=== PATIENT | male | born 1995 | race Two or more races ===

== ENCOUNTER 2017-07-17 00:30 | Inpatient (IN) | payer OTHER, SELFPAY ==
[2017-07-17] VITALS (16 sets, daily range): BP systolic 66–124; BP diastolic 27–70
[~2017-07-17] VITALS: Ht 170.2 cm; Wt 63.3 kg
[2017-07-17] MEDS ORDERED: ONDANSETRON ODT 4 MG ONE (00:55)
[2017-07-17] MEDS ORDERED: ONDANSETRON ODT 4 MG PO ONE (01:00)
[2017-07-17] MEDS ORDERED: SODIUM CHLORIDE 0.9% 1,000ML IVBOLUS ONE ×2 (01:00→06:30)
[2017-07-17] MEDS ORDERED: SODIUM CHLORIDE FLUSH 10ML SYR IVF ONE (01:00)
[2017-07-17 01:07] LABS: INTERNATIONAL NORMALIZED RATIO 1.64 (0.93-1.1); PROTHROMBIN TIME 16.9 Seconds (9.6-11.5)
[2017-07-17 01:09] LABS: ALANINE AMINOTRANSFERASE 18 U/L (12-78); ALBUMIN 2.3 g/dL (3.4-5.0); ANION GAP 12 mmol/L (5-15); CALCIUM 6.8 mg/dL (8.5-10.1); CHLORIDE 107 mmol/L (98-107); CREATININE 1.16 mg/dL (0.7-1.3)
[2017-07-17] MEDS ORDERED: PROCHLORPERAZINE 5 MG/ML, 2ML ONE (01:10)
[2017-07-17 01:11] LABS: ALKALINE PHOSPHATASE 51 U/L (45-117); BILIRUBIN,TOTAL 0.3 mg/dL (0.2-1.0); TOTAL PROTEIN 4.2 g/dL (6.4-8.2)
[2017-07-17 01:12] LABS: MEAN CORPUSCULAR HEMOGLOBIN 24.7 pg (27.5-34.5); MEAN CORPUSCULAR HGB CONC 31.5 g/dL (33.2-36.2); MEAN CORPUSCULAR VOLUME 78.5 fL (81-97); MEAN PLATELET VOLUME 7.9 fL (7.4-10.4); PLATELET COUNT 113 x10^3/uL (130-400); RED BLOOD COUNT 1.84 x10^6/uL (4.38-5.82); RED CELL DISTRIBUTION WIDTH 18.1 % (9.4-14.8)
[2017-07-17 01:21] LABS: ANISOCYTOSIS 1+; BASOPHILS # (AUTO) 0.02 x10^3/uL (0-0.3); BASOPHILS % (AUTO) 0 % (0-1); EOSINOPHILS % (AUTO) 0 % (1-7); LYMPHOCYTES # (AUTO) 2.16 x10^3/uL (1-6.1); LYMPHOCYTES % (AUTO) 17 % (22-44); MD MORPH REVIEW ONLY; MONOCYTES # (AUTO) 0.89 x10^3/uL (0-1.4); MONOCYTES % (AUTO) 7 % (2-9); NEUTROPHILS # (AUTO) 9.42 x10^3/uL (1.8-8.0); NEUTROPHILS % (AUTO) 75 % (42-75); OVALOCYTES 1+; POLYCHROMASIA 1+; TARGET CELLS 1+
[2017-07-17 01:22] LABS: SCHISTOCYTES 1+
[2017-07-17 01:28] LABS: SPHEROCYTES 1+
[2017-07-17 01:29] LABS: ACETAMINOPHEN 5 mcg/mL (10-30)
[2017-07-17 01:30] LABS: <PLATELET ESTIMATE> ADEQUATE; <PLT MORPHOLOGY> NORMAL PLT MORPH; HYPOCHROMIA 1+; MICROCYTOSIS 1+
[2017-07-17 01:32] LABS: SALICYLATE LEVEL < 1.7 mg/dL (2.8-20.0)
[2017-07-17] MEDS ORDERED: PROCHLORPERAZINE 5 MG/ML, 2ML IVPush ONE (02:30)
[2017-07-17] MEDS ORDERED: DOCUSATE 100 MG CAPSULE PO PRN (04:30)
[2017-07-17] MEDS ORDERED: ACETAMINOPHEN 325 MG TABLET PO PRN (04:30)
[2017-07-17] MEDS ORDERED: D5%-0.9% NACL+KCL 20MEQ 1,000 ML IV SCH (04:30)
[2017-07-17] MEDS ORDERED: OXYcodone IR 5MG TABLET PO PRN (04:30)
[2017-07-17] MEDS ORDERED: BISACODYL 10 MG SUPP PR PRN ×2 (04:30→17:00)
[2017-07-17] MEDS ORDERED: ONDANSETRON 2MG/ML, 2ML IVPush PRN (04:30)
[2017-07-17] MEDS ORDERED: hydrALAzine 20 MG/ML, 1ML IVPush PRN (04:30)
[2017-07-17] MEDS ORDERED: POLYETHYLENE GLYCOL 17 GM PACKET PO PRN (04:30)
[2017-07-17] MEDS ORDERED: PANTOPRAZOLE 40 MG IV IVPush SCH ×2 (04:30→21:00)
[2017-07-17] MEDS ORDERED: PANTOPRAZOLE 40 MG IV ONE (04:40)
[2017-07-17 06:12] LABS: FREE T4 (FREE THYROXINE) 0.83 ng/dL (0.76-1.46); THYROID STIMULATING HORMONE 0.799 mIU/L (0.358-3.740)
[2017-07-17] MEDS: NOREPINEPHRINE 4 MG in SODIUM CHLORIDE 0.9% 246 ML IV PRN ×2 (07:10→10:17)
[2017-07-17 08:37] LABS: ANION GAP 7 mmol/L (5-15); CHLORIDE 115 mmol/L (98-107); CREATININE 0.65 mg/dL (0.7-1.3)
[2017-07-17 08:40] LABS: CALCIUM 5.8 mg/dL (8.5-10.1)
[2017-07-17] MEDS ORDERED: OCTREOTIDE 50 MCG/ML, 1ML (0.05MG/ML) IVPush ONE (09:00)
[2017-07-17] MEDS ORDERED: OCTREOTIDE 500 MCG in SODIUM CHLORIDE 0.9% 249 ML IV SCH (09:00)
[2017-07-17] MEDS ORDERED: MIDAZOLAM 1 MG/ML, 5ML ONE (09:08)
[2017-07-17] MEDS ORDERED: FENTANYL PF 100 MCG/2ML ONE ×3 (09:08→14:14)
[2017-07-17] MEDS ORDERED: CALCIUM CHLORIDE 13.6 MEQ in SODIUM CHLORIDE 0.9% 100 ML IV ONE ×2 (10:00→16:00)
[2017-07-17] MEDS ORDERED: PHYTONADIONE 10 MG in SODIUM CHLORIDE 0.9% 50 ML IV ONE (10:00)
[2017-07-17] MEDS ORDERED: PHENYLEPHRINE 20 MG in SODIUM CHLORIDE 0.9% 248 ML IV PRN (10:30)
[2017-07-17 10:42] LABS: MEAN CORPUSCULAR HEMOGLOBIN 29.6 pg (27.5-34.5); MEAN CORPUSCULAR HGB CONC 34.4 g/dL (33.2-36.2); MEAN CORPUSCULAR VOLUME 86.1 fL (81-97); MEAN PLATELET VOLUME 9.3 fL (7.4-10.4); RED BLOOD COUNT 2.12 x10^6/uL (4.38-5.82); RED CELL DISTRIBUTION WIDTH 15.1 % (9.4-14.8)
[2017-07-17 10:46] LABS: PLATELET COUNT 19 x10^3/uL (130-400)
[2017-07-17] MEDS ORDERED: MIDAZOLAM 1 MG/ML, 2ML ONE ×2 (11:09→14:14)
[2017-07-17] MEDS ORDERED: PROPOFOL 10 MG/ML, 20ML ONE (11:28)
[2017-07-17] MEDS ORDERED: CEFAZOLIN 1,000 MG ONE (11:28)
[2017-07-17] MEDS ORDERED: ROCURONIUM 10 MG/ML,10ML ONE (11:28)
[2017-07-17] MEDS ORDERED: DEXAMETHASONE 4 MG/ML, 1ML ONE (11:28)
[2017-07-17] MEDS ORDERED: PANT40VI IVPush (14:02)
[2017-07-17] MEDS ORDERED: MORP10VI10 IVPush (14:02)
[2017-07-17 15:26] LABS: BASOPHILS # (AUTO) 0.05 x10^3/uL (0-0.3); BASOPHILS % (AUTO) 0 % (0-1); EOSINOPHILS % (AUTO) 0 % (1-7); LYMPHOCYTES # (AUTO) 1.12 x10^3/uL (1-6.1); LYMPHOCYTES % (AUTO) 7 % (22-44); MD NO; MEAN CORPUSCULAR HEMOGLOBIN 29.8 pg (27.5-34.5); MEAN CORPUSCULAR HGB CONC 33.9 g/dL (33.2-36.2); MEAN PLATELET VOLUME 7.7 fL (7.4-10.4); MONOCYTES # (AUTO) 1.32 x10^3/uL (0-1.4); MONOCYTES % (AUTO) 8 % (2-9); NEUTROPHILS # (AUTO) 13.99 x10^3/uL (1.8-8.0); NEUTROPHILS % (AUTO) 85 % (42-75); PLATELET COUNT 107 x10^3/uL (130-400); RED BLOOD COUNT 3.24 x10^6/uL (4.38-5.82)
[2017-07-17] MEDS: morphine SULFATE 10 MG/ML, 1ML IVPush PRN ×3 (15:29→16:55)
[2017-07-17 15:55] LABS: INTERNATIONAL NORMALIZED RATIO 1.3 (0.93-1.1); PROTHROMBIN TIME 13.4 Seconds (9.6-11.5)
[2017-07-17] MEDS ORDERED: PHENYLEPHRINE 10 MG in SODIUM CHLORIDE 0.9% 249 ML IV PRN (16:47)
[2017-07-17] MEDS ORDERED: PROPOFOL 100 ML IV PRN (16:47)
[2017-07-17] MEDS ORDERED: LACTULOSE 20 GM/30 ML UDC NG PRN (17:00)
[2017-07-17] MEDS ORDERED: LIDOCAINE-MPF 1%, 2ML ENDO PRN (17:00)
[2017-07-17] MEDS ORDERED: SENNOSIDES 8.8 MG/5 ML ORAL SOL NG PRN (17:00)
[2017-07-17] MEDS ORDERED: MIDAZOLAM 1 MG/ML, 5ML IV ONE (17:00)
[2017-07-17] MEDS ORDERED: ALBUTEROL/IPRATROPIUM 2.5MG/0.5MG, 3 ML INLINE SCH (17:00)
[2017-07-17] MEDS ORDERED: SENNA/DOCUSATE TABLET NG PRN (17:00)
[2017-07-17] MEDS ORDERED: PHARMACY MAY ADJ FOR RENAL FX MC SCH (17:00)
[2017-07-17] MEDS ORDERED: FENTANYL PF 100 MCG/2ML IVPush PRN (17:00)
[2017-07-18] MEDS ORDERED: EPINEPHRINE SYRINGE 0.1 MG/ML, 10ML ONE (10:26)
== END 2017-07-17 16:50 | disposition short-term general hospital (02) | DRG 377 ==
LOC: ED 00:37 → EDIP 04:02 → CCU 07:23
PROVIDERS: ADMIT Internal Medicine; ATTEND Internal Medicine
PROC: 30233N1 Transfusion of Nonautologous Red Blood Cells into Peripheral Vein, Percutaneous Approach (ICD-10-PCS; 2017-07-17)
PROC: 6A550Z3 Pheresis of Plasma, Single (ICD-10-PCS; 2017-07-17)
PROC: 6A550Z2 Pheresis of Platelets, Single (ICD-10-PCS; 2017-07-17)
PROC: 30233L1 Transfusion of Nonautologous Fresh Plasma into Peripheral Vein, Percutaneous Approach (ICD-10-PCS; 2017-07-17)
PROC: 30233K1 Transfusion of Nonautologous Frozen Plasma into Peripheral Vein, Percutaneous Approach (ICD-10-PCS; 2017-07-17)
PROC: 02HV33Z Insertion of Infusion Device into Superior Vena Cava, Percutaneous Approach (ICD-10-PCS; 2017-07-17)
PROC: 0W3P8ZZ Control Bleeding in Gastrointestinal Tract, Via Natural or Artificial Opening Endoscopic (ICD-10-PCS; principal; 2017-07-17 09:00)
DX: K92.2 Gastrointestinal hemorrhage, unspecified (principal); R57.8 Other shock; J96.00 Acute respiratory failure, unspecified whether with hypoxia or hypercapnia; I81 Portal vein thrombosis; E43 Unspecified severe protein-calorie malnutrition; G93.40 Encephalopathy, unspecified; K76.6 Portal hypertension; D68.9 Coagulation defect, unspecified; Z99.11 Dependence on respirator [ventilator] status; E87.2 Acidosis; D69.6 Thrombocytopenia, unspecified; E83.51 Hypocalcemia; I10 Essential (primary) hypertension; F17.200 Nicotine dependence, unspecified, uncomplicated; E86.1 Hypovolemia; D50.0 Iron deficiency anemia secondary to blood loss (chronic); R55 Syncope and collapse; R73.9 Hyperglycemia, unspecified; I83.90 Asymptomatic varicose veins of unspecified lower extremity; Z90.81 Acquired absence of spleen
CPT/HCPCS: 36415; 36430; 36569; 36600; 71045; 74021; 74177; 78278; 80048; 80053; 80307; 80329; 82306; 82310; 82330; 82607; 82728; 82803; 82947; 83036; 83540; 83550; 83690; 83735; 84132; 84295; 84439; 84443; 84466; 84478; 85014; 85018; 85025; 85027; 85610; 85730; 86850; 86900; 86923; 87081; 94002; 96361; 96374; 96375; J0690; J1100; J2250; J2354; J2704; J3010; J3430; Q0162; A9560; C9113; C9898; G0480; J0780; J2270; J3480; J7030; J7050; P9016; P9017; P9035